=== PATIENT | male | born 1955 | race Caucasian/White ===

== ENCOUNTER → 2016-09-27 | Outpatient (CLI) | payer OTHER, MEDICARE ==
[2016-09-27 13:45] LABS: HEMOGLOBIN 12.1 g/dL (14.1-18.0); LYMPH # 1.6 K/mm3 (0.7-4.5)
[2016-09-27 14:06] LABS: BILIRUBIN, INDIRECT 0.23 mg/dL (0-0.9); BUN 12 mg/dL (7-18)
[2016-09-27 14:08] LABS: GFR (ESTIMATED) 98 ML/MIN (>60)
== END ==
LOC: CARL-LAB 10:28
PROVIDERS: Internal Medicine Infectious Disease
DX: S91.302A Unspecified open wound, left foot, initial encounter (principal); M86.172 Other acute osteomyelitis, left ankle and foot; M62.81 Muscle weakness (generalized); E11.9 Type 2 diabetes mellitus without complications; I10 Essential (primary) hypertension; Z45.2 Encounter for adjustment and management of vascular access device

== ENCOUNTER → 2016-10-03 | Outpatient (CLI) | payer OTHER, MEDICARE ==
[2016-10-03 13:25] LABS: HEMOGLOBIN 12.3 g/dL (14.1-18.0); LYMPH # 1.6 K/mm3 (0.7-4.5); LYMPH % 22.2 % (10-50)
[2016-10-03 14:26] LABS: BUN 17 mg/dL (7-18)
[2016-10-03 14:31] LABS: GFR (ESTIMATED) 75 ML/MIN (>60)
== END ==
LOC: CARL-LAB 10:08
PROVIDERS: Internal Medicine Infectious Disease
DX: S91.302A Unspecified open wound, left foot, initial encounter (principal); M86.172 Other acute osteomyelitis, left ankle and foot; M62.81 Muscle weakness (generalized); E11.9 Type 2 diabetes mellitus without complications; I10 Essential (primary) hypertension; Z45.2 Encounter for adjustment and management of vascular access device

== ENCOUNTER → 2016-12-18 | Outpatient (CLI) | payer OTHER, MEDICARE ==
[2016-12-18 11:21] LABS: HEMOGLOBIN 10.3 g/dL (14.1-18.0); LYMPH # 1.2 K/mm3 (0.7-4.5); LYMPH % 21.3 % (10-50)
[2016-12-18 12:23] LABS: BUN 16 mg/dL (7-18)
[2016-12-18 12:58] LABS: GFR (ESTIMATED) 68 ML/MIN (>60)
== END ==
LOC: LAB 10:59
PROVIDERS: Internal Medicine Infectious Disease
DX: S91.302A Unspecified open wound, left foot, initial encounter (principal); E11.9 Type 2 diabetes mellitus without complications; I10 Essential (primary) hypertension; M62.81 Muscle weakness (generalized); M86.172 Other acute osteomyelitis, left ankle and foot; Z45.2 Encounter for adjustment and management of vascular access device